=== PATIENT | female | born 1960 | race Caucasian/White ===

== ENCOUNTER → 2019-09-23 08:47 | Outpatient (CLI) | payer BC, SELFPAY ==
[2019-09-23 09:37] LABS: Add Manual Diff / Slide Review NO; Basophils Absolute Auto 100 /uL (0-100); Basophils Percent Auto 2.2 % (0-2); Eosinophils Absolute Auto 100 /uL (0-450); Hematocrit 42.2 % (36-46); Hemoglobin 14.7 g/dL (12.0-16.0); Lymphocytes Absolute Auto 2900 /uL (1100-4500); Lymphocytes Percent Auto 49.7 % (25-40); Mean Corpuscular HGB Conc 34.9 % (30-36); Mean Corpuscular Hemoglobin 30.9 PG (26-34); Mean Corpuscular Volume 88.5 fL (80-100); Monocytes Absolute Auto 500 /uL (0-900); Monocytes Percent Auto 7.8 % (3-14); Neutrophils Absolute Auto 2200 /uL (1500-7000); Neutrophils Percent Auto 38.3 % (50-75); Platelet Count 273 X10^3/uL (150-400); Red Blood Cell Count 4.77 X10^6/uL (4.0-5.2); Red Cell Distribution Width 12.8 % (11.6-14.8); White Blood Cell Count 5.8 X10^3/uL (4.5-11.0)
[2019-09-23 09:47] LABS: Alanine Aminotransferase 39 IU/L (<35); Albumin 4.6 g/dL (3.5-5.0); Albumin Globulin Ratio 1.5 (1.0-2.8); Alkaline Phosphatase 120 U/L (38-126); Aspartate Aminotransferase 30 IU/L (14-36); BUN Creatinine Ratio 24.3 (6-22); Bilirubin Total 0.5 mg/dL (0.2-1.3); Blood Urea Nitrogen 17 mg/dL (7-17); Calcium 9.4 mg/dL (8.4-10.2); Carbon Dioxide 28 mmol/L (22-32); Chloride 103 mmol/L (98-107); Cholesterol 233 mg/dL (140-199); Estimated Glomerular Filt Rate > 60.0 mL/min (>60); Glucose 111 mg/dL (80-110); HDL Cholesterol 38 mg/dL (40-60); HEMOLYSIS < 15 (0-50); LDL Cholesterol Calculated 141 mg/dL (<100); Potassium 4.3 mmol/L (3.4-5.1); Sodium 140 mmol/L (137-145); Total Protein 7.6 g/dL (6.3-8.2); Triglycerides 269 mg/dL (35-150)
[2019-09-23 10:30] LABS: Free T3, Triiodothyronine Free 3.84 pg/mL (2.77-5.27); Free T4, Direct Thyroxine 1.13 ng/dL (0.78-2.19)
[2019-09-23 10:44] LABS: Thyroid Stimulating Hormone 1.69 uIU/mL (0.47-4.68)
[2019-09-23 14:07] LABS: Appearance Urine UA CLEAR; Bilirubin Urine UA NEGATIVE (NEGATIVE); Color Urine UA YELLOW; Glucose Urine UA NEGATIVE (Negative); Ketones Urine UA NEGATIVE (NEGATIVE); Leukocyte Esterase Urine UA 1+ (NEGATIVE); Nitrite Urine UA NEGATIVE (Negative); Occult Blood Urine UA 1+ (Negative); Protein Urine UA NEGATIVE (Negative); Urobilinogen Urine UA 0.2 E.U./dL (0.2)
[2019-09-23 14:16] LABS: Amorphous Sediment Urine 1+; Bacteria Urine Occasional (0-1); Culture Indicated Urine Specimen Cultured; Mucus Urine 1+ (Negative); RBC Urine 0-1/HPF (0-5/HPF); Squamous Epithelial Cell Urine 1-5 /HPF (0-5/HPF); WBC Urine 1-5/HPF (0-5/HPF)
[2019-09-23 14:43] LABS: Creatinine Urine Random 43.9 mg/dL
[2019-09-23 15:14] LABS: Microalbumi Creatinin Ratio Ur 13.6 ug/mg CR (<30); Microalbumin Urine Random < 0.6 mg/dL (0-1.6)
== END ==
PROVIDERS: PCP Nurse Practitioner; Visit Provider Nurse Practitioner
DX: Z00.00 Encounter for general adult medical examination without abnormal findings (principal)
CPT/HCPCS: 36415; 80053; 80061; 81001; 82043; 82570; 84439; 84443; 84481; 85025; 87077; 87086; 87186

== ENCOUNTER → 2019-09-23 12:57 | Outpatient (CLI) | payer BC, SELFPAY ==
--- NOTE | 2019-09-23 13:01 | DI.US.S_ITS ---
PROCEDURE: US PELVIC COMPLETE INDICATIONS: UTERINE MASS TECHNIQUE: Real-time scanning was performed of the pelvic organs, with image documentation. Additional endovaginal scanning was necessary due to incomplete visualization of the adnexal and endometrial structures by transabdominal scanning. COMPARISON: None. FINDINGS: Transabdominal scanning: Limited scanning through the kidneys shows no hydronephrosis. No pathologic free abdominal or pelvic fluid. Endovaginal scanning: Uterus: Uterus is mildly enlarged in size for a postmenopausal patient at 5.5 x 7.5 x 9.7 cm. The endometrium is not be visualized as a normal discrete entity, but rather the area of the endometrial canal is diffusely heterogeneous with no normal endometrial tissue visualized. There is a midline submucosal 4.6 x 4.3 x 4.8 cm vascular mass consistent with fibroid, a left/midline intramural 1.7 x 1.6 x 1.5 cm rounded masslike structure also consistent with fibroid. There is a midline intramural 1.6 x 1.7 x 2.1 cm small rounded mass consistent with fibroid. The cervix appears normal. Ovaries: The right ovary measures 3.3 x 1.6 x 1.9 cm the left ovary could not be visualized. Incidental note is made of a sharply demarcated cysts involving the right liver, near the right kidney and the liver is seen to be hyperechoic consistent with generalized fatty infiltration, IMPRESSION: The patient reports 10 years postmenopausal status, without hormone replacement therapy. Currently the uterus is seen to contain several fibroids, but also the endometrial canal area is diffusely heterogeneous, potentially involved by a mass lesion, and sonographic assessment cannot accurately establish presence or absence of malignancy in this patient. Pelvic MRI with contrast may be warranted for more accurate assessment. Normal appearing right ovary, nonvisualization of the left ovary. Dictated by: Rojas Louis M.D. on 09/23/2019 at 14:18 Approved by: Rojas Louis M.D. on 09/23/2019 at 14:24
== END ==
PROVIDERS: PCP Nurse Practitioner; Visit Provider Nurse Practitioner
DX: N85.8 Other specified noninflammatory disorders of uterus (principal); D25.0 Submucous leiomyoma of uterus; D25.1 Intramural leiomyoma of uterus; K76.89 Other specified diseases of liver
CPT/HCPCS: 76830; 76856

== ENCOUNTER → 2019-10-03 15:35 | Outpatient (CLI) | payer BC, SELFPAY ==
--- NOTE | 2019-10-03 15:36 | DI.MRI.S_ITS ---
PROCEDURE: MR PELVIS WO/W CON INDICATIONS: Uterine mass, abnormal pelvic US TECHNIQUE: Coronal HASTE, sagittal breath-hold T2 FSE; axial T1 FSE with and without fat saturation through the pelvis. Optional long- and short-axis uterine nonbreath-hold T2 FSE through the uterus. Sagittal or axial dynamic VIBE during administration of contrast. Post-contrast axial or coronal VIBE/2-D FLASH with fat saturation from the iliac crests to the symphysis. Optional diffusion weighted imaging and ADC may be performed. COMPARISON: [facility], US, US PELVIC COMPLETE, 09/23/2019, 13:12. FINDINGS: Image quality: Excellent. Uterus: Uterus is moderately enlarged and in size and somewhat lobulated, with multiple uterine fibroids present showing mildly heterogeneous contrast enhancement and generally a size of approximately 2.8 cm. There is, however, the dominant rounded uterine mass that is heterogeneous internally and shows a greater degree of contrast enhancement seen at the mid body cephalad into the uterine fundus. This structure measures up to 5.4 cm AP, 5.4 cm craniocaudad an approximately 5.3 cm in maximal transverse dimension. Endometrium is normal in thickness where well visualized but the endometrial lining is not fully visualized due to distortion by the multiple uterine fibroids. Junctional zone is normal in thickness at 12 mm or less where well seen. Adnexa: Both ovaries are normal in size, without suspicious cystic or solid lesions. Urinary system: Bladder wall is normal in thickness. Distal ureters are non distended. Urethra appears normal in morphology. Nodes and vessels: No pelvic or inguinal adenopathy by size criteria. Iliac vessels are normal in size. Bowel and peritoneum: No pathologic free pelvic fluid. Inferior colon and small bowel loops are normal in caliber. Soft tissues: No inguinal hernias. No findings of pelvic floor incompetence in the absence of provocation. Bones: Marrow demonstrates normal overall signal. IMPRESSION: A large dominant fibroid is the presumed cause for the dominant mass involving the myometrium of the uterus, measuring up to 5.4 x 5.4 x 5.3 cm. This enhances to a somewhat greater degree than additional smaller fibroids scattered within the myometrium, all of which distort the endometrial lining to the degree that it is not fully visualized. No adenopathy or free fluid is seen. Gynecological consultation is recommended given the absence of comparison studies and the dominant nature of the fibroid discussed above. It is very difficult to discriminate between early neoplastic change such as a leiomyosarcoma from a dominant fibroid such is present in this case. If old comparison studies are available for review they should be obtained and an addendum report to this examination could be generated. Dictated by: Rojas Louis M.D. on 10/04/2019 at 9:07 Approved by: Rojas Louis M.D. on 10/04/2019 at 9:26
== END ==
PROVIDERS: PCP Nurse Practitioner; Visit Provider Nurse Practitioner
DX: R93.89 Abnormal findings on diagnostic imaging of other specified body structures (principal); D25.9 Leiomyoma of uterus, unspecified; N94.89 Other specified conditions associated with female genital organs and menstrual cycle
CPT/HCPCS: 72197; A9579

== ENCOUNTER → 2019-10-22 14:27 | Outpatient (CLI) | payer BC, SELFPAY ==
[2019-10-22 15:31] LABS: Amylase 79 U/L (30-110); Lipase 127 U/L (23-300)
== END ==
PROVIDERS: PCP Nurse Practitioner
DX: K85.90 Acute pancreatitis without necrosis or infection, unspecified (principal)
CPT/HCPCS: 36415; 82150; 83690

== ENCOUNTER → 2019-11-11 11:58 | Outpatient (CLI) | payer BC, SELFPAY ==
--- NOTE | 2019-11-11 12:00 | DI.MG.S_ITS ---
BILATERAL DIGITAL SCREENING MAMMOGRAM 3D/2D WITH CAD: 11/11/2019 CLINICAL: Routine screening. Comparison is made to exams dated: 10/26/2010 mammogram, 07/04/2011 mammogram, and 12/19/2011 mammogram - [facility]. The tissue of both breasts is heterogeneously dense. This may lower the sensitivity of mammography. Current study was also evaluated with a Computer Aided Detection (CAD) system. There is an oval equal density mass with a circumscribed margin in the right breast at 3 o'clock posterior depth. No other significant masses, calcifications, or other findings are seen in either breast. IMPRESSION: INCOMPLETE: NEEDS ADDITIONAL IMAGING EVALUATION The oval equal density mass in the right breast is indeterminate. Mediolateral and spot compression views as well as additional views with possible ultrasound are recommended. This exam was interpreted at Station ID: [id number]. NOTE: For mammograms, a report in lay terms will be sent to the patient. Approximately 15% of breast malignancies will not be visualized mammographically. In the management of a palpable breast mass, a negative mammogram must not discourage biopsy of a clinically suspicious lesion. Electronically Signed By: John euceda/chantale:11/12/2019 16:04:38 letter sent: Additional Imaging Needed ACR BI-RADS Category 0: Incomplete 3340F
== END ==
PROVIDERS: PCP Nurse Practitioner; Visit Provider Nurse Practitioner
DX: Z12.31 Encounter for screening mammogram for malignant neoplasm of breast (principal)
CPT/HCPCS: 77063; 77067

== ENCOUNTER → 2019-12-10 09:41 | Outpatient (CLI) | payer BC, SELFPAY ==
--- NOTE | 2019-12-10 09:45 | DI.US.S_ITS ---
ULTRASOUND OF RIGHT BREAST: 12/10/2019 CLINICAL: Abn mammo. Comparison is made to exams dated: 12/10/2019 mammogram, 11/11/2019 mammogram - [facility], 12/19/2011 mammogram, 07/04/2011 mammogram, and 10/26/2010 mammogram - [facility]. Color flow and real-time ultrasound of the right breast were performed on the areas of interest. Manley scale images of the real-time examination were reviewed. There is a 0.9 cm x 0.7 cm x 0.8 cm irregular cyst in the right breast at 3 o'clock middle depth. This irregular cyst is of mixed echogenicity with internal debris layered inferiorly. This correlates with mammography findings. IMPRESSION: PROBABLY BENIGN The 0.9 cm x 0.7 cm x 0.8 cm irregular cyst in the right breast is consistent with a complicated cyst and is probably benign. A follow-up right mammogram and an ultrasound in 6 months is recommended to demonstrate stability. This exam was interpreted at Station ID: [id number]. Electronically Signed By: Federica gonzales/:12/10/2019 10:46:12 letter sent: Followup Recommended Ultrasound BI-RADS: 3 Probably benign
--- NOTE | 2019-12-10 09:45 | DI.MG.S_ITS ---
UNILATERAL RIGHT DIGITAL DIAGNOSTIC MAMMOGRAM 3D/2D WITH ADDITIONAL VIEWS: 12/10/2019 CLINICAL: Additional evaluation requested from prior study. Comparison is made to exams dated: 11/11/2019 mammogram - [facility], 12/19/2011 mammogram, and 07/04/2011 mammogram - [facility]. The tissue of right breast is heterogeneously dense. This may lower the sensitivity of mammography. There is an oval equal density mass with a circumscribed margin in the right breast at 3 o'clock posterior depth. This is seen in additional views. No other significant masses or calcifications are seen in the breast. IMPRESSION: INCOMPLETE: NEEDS ADDITIONAL IMAGING EVALUATION The oval equal density mass in the right breast is indeterminate. A targeted ultrasound of the right breast is recommended and will be performed immediately following this exam. This exam was interpreted at Station ID: [id number]. NOTE: For mammograms, a report in lay terms will be sent to the patient. Approximately 15% of breast malignancies will not be visualized mammographically. In the management of a palpable breast mass, a negative mammogram must not discourage biopsy of a clinically suspicious lesion. Electronically Signed By: Federica Castillo M.D. lk/:12/10/2019 10:11:27 ACR BI-RADS Category 0: Incomplete 3340F
== END ==
PROVIDERS: PCP Nurse Practitioner; Referring Provider Nurse Practitioner; Visit Provider Nurse Practitioner
DX: R92.8 Other abnormal and inconclusive findings on diagnostic imaging of breast (principal); N60.01 Solitary cyst of right breast
CPT/HCPCS: 76642; 77065; G0279

== ENCOUNTER → 2019-12-27 09:55 | Outpatient (CLI) | payer BC, SELFPAY ==
[2019-12-27 10:48] LABS: Cholesterol 265 mg/dL (140-199); HDL Cholesterol 46 mg/dL (40-60); LDL Cholesterol Calculated 167 mg/dL (<100); Triglycerides 261 mg/dL (35-150)
== END ==
PROVIDERS: PCP Nurse Practitioner; Referring Provider Nurse Practitioner; Visit Provider Nurse Practitioner
DX: E78.5 Hyperlipidemia, unspecified (principal); Z79.899 Other long term (current) drug therapy
CPT/HCPCS: 36415; 80061

== ENCOUNTER → 2020-01-21 13:24 | Outpatient (CLI) | payer BC, SELFPAY ==
--- NOTE | 2020-01-21 13:25 | DI.MRI.S_ITS ---
PROCEDURE: MR ABDOMEN WO CON INDICATIONS: Per GI Dr. Cates Recommendations-hx pancreatitis TECHNIQUE: Coronal HASTE through the abdomen, axial 2-D FLASH in- and [id number], and breath-hold T2 FSE with fat saturation through the biliary system and pancreas. Oblique coronal and axial thin-slice HASTE, radial thick-slab HASTE centered on the extrahepatic bile ducts. Intravenous secretin: Not requested. COMPARISON: None. FINDINGS: Image quality: Excellent. Pancreas and biliary system: The gallbladder is surgically absent. The cystic duct remnant appears as expected. The extrahepatic common duct measures up to 9 mm, expected postcholecystectomy. It tapers normally to the ampulla and measures about 7 mm in maximal diameter. The very mild central intrahepatic biliary dilatation, also expected postcholecystectomy. There are no filling defects in the common duct. Pancreas is normal in morphology, without adjacent soft tissue edema. There is an 8mm cyst along the ventral aspect of the distal tail without a definite connection to the pancreatic duct. Pancreatic duct is normal in caliber, without developmental anomalies. Other solid organs: Liver is normal in size. There is significant signal drop on T1 out of phase imaging with relative hyperintensity around the inferior vena cava, and the caudate lobe. There are multiple small simple cysts scattered throughout the liver, the largest in the caudal right lobe segment measures about 2.5 cm. Spleen is normal in size. No adrenal nodules. Both kidneys are normal in size, without hydronephrosis. Nodes and vessels: No retroperitoneal or mesenteric adenopathy by size criteria. Aorta and inferior vena cava are normal in size. Bowel and peritoneum: Unenhanced bowel loops are normal in caliber. No free fluid. Lung bases: No basal pleural effusions. Heart size is normal. Bones and soft tissues: No ventral hernias. Bone marrow is of normal overall signal. IMPRESSION: 1. Post cholecystectomy and expected caliber of the intra-and extrahepatic bile ducts. 2. No evidence of choledocholithiasis. 3. There is an 8mm subcapsular exophytic pancreatic cyst along the distal tail. This is nonspecific and may be a tiny pseudocyst. One year followup is recommended for reassessment. The pancreas has an otherwise normal morphology. 4. Severe hepatic steatosis and scattered simple hepatic cysts. Dictated by: Itzel Ivy M.D. on 01/21/2020 at 16:19 Approved by: Itzel Ivy M.D. on 01/21/2020 at 16:30
== END ==
PROVIDERS: PCP Nurse Practitioner; Referring Provider Nurse Practitioner; Visit Provider Nurse Practitioner
DX: K85.90 Acute pancreatitis without necrosis or infection, unspecified (principal); K86.2 Cyst of pancreas; Z90.49 Acquired absence of other specified parts of digestive tract; K76.0 Fatty (change of) liver, not elsewhere classified; K76.89 Other specified diseases of liver
CPT/HCPCS: 74181

== ENCOUNTER → 2020-03-26 09:14 | Outpatient (CLI) | payer BC, SELFPAY ==
[2020-03-26 11:17] LABS: Cholesterol 217 mg/dL (140-199); HDL Cholesterol 43 mg/dL (40-60); LDL Cholesterol Calculated 122 mg/dL (<100); Triglycerides 259 mg/dL (35-150)
== END ==
PROVIDERS: PCP Nurse Practitioner; Referring Provider Nurse Practitioner; Visit Provider Nurse Practitioner
DX: E78.2 Mixed hyperlipidemia (principal)
CPT/HCPCS: 36415; 80061

== ENCOUNTER → 2020-06-01 11:31 | Outpatient (CLI) | payer BC, SELFPAY ==
[2020-06-02 03:49] LABS: COVID19 Sendout Not Detected (Not Detect)
== END ==
PROVIDERS: PCP Nurse Practitioner; Visit Provider Physician Assistant
DX: Z11.59 Encounter for screening for other viral diseases (principal)
CPT/HCPCS: 87635

== ENCOUNTER 2020-06-04 08:41 | Day surgery (SDC) | payer BC, SELFPAY ==
--- NOTE | 2020-06-04 | PATH_ITS ---
[facility] Accession Number: [id number] . 01 Material submitted: . body - POLYP AT 15CM . 02 Diagnosis: Colon, Polyp at 15 cm, Biopsy: Hyperplastic polyp. MRV 06/09/2020 1323 Local . 02 Electronically signed: . Melania Mendoza MD, Pathologist NPI- [id number] . 01 Gross description: . Received in formalin, labeled with the patient's name, MRN and polyp at 15 cm, are two martinez-white irregular fragments of tissue, each measuring 0.3 cm in greatest dimension. The entire specimen is submitted in cassette A1. (SD/[id number] [id number]) /MRV 06/05/2020 1326 Local . 02 Pathologist provided ICD-10: K63.5 . 02 CPT . 779628 Performed at: 01 [facility] [address] [id number] MD John Guan MD Phone: [phone] Performed at: 02 [facility] [address] [place], [place] [id number] MD Melania Mendoza MD Phone: [phone]
[2020-06-04 09:00] VITALS: BP 137/89; PULSE 82; RESP 17; TEMP 36.4; O2SAT 94; BMI 30.1
[2020-06-04] MEDS: LACTATED RINGERS 1,000 ML 200 ML IV (09:00)
--- NOTE | 2020-06-04 10:34 | PM.HP.1 ---
History of Present Illness History of Present Illness Date Patient Seen: 06/04/20 Time Patient Seen: 10:11 Chief complaint: SDC Narrative: The patient is a woman here for screening colonoscopy. Last exam was 10 or 11 years ago when she was 49. No family history of colon cancer. Patient History Medical History Allergies (Chronic ~1985) Chicken pox (Resolved ~1965) Cystic breast (Acute) Cystic mass of pancreas (Acute) Hepatic cyst (Acute) Hepatic steatosis (Acute) History of Clostridioides difficile colitis (Resolved) History of Helicobacter pylori infection (Resolved) History of pancreatitis (Resolved) Insomnia (Chronic) Mixed hyperlipidemia (Acute) Mumps (Resolved ~1966) Obstructive sleep apnea (Chronic) Pancreatitis (Chronic) Snoring (Chronic) Surgical History Anesthesia (Resolved) History of cholecystectomy (Resolved) History of laparoscopy (Resolved ~1989) Family & Social History Family History Father History of heart disease Brother Hyperlipidemia Hypertension Grandfather Cancer Grandmother No problems noted. Grandfather History of heart disease Grandmother Diabetes mellitus History of heart disease Social History: household members significant other Tobacco & Substance use: Smoking Status Former smoker alcohol intake current Substance Use Type does not use Meds Home Medications and Allergies Home Medications Medication Instructions Recorded Confirmed Type L. acidophilus 5 mg-digestive cap PO 08/23/19 12/31/19 History enzymes combo no.5 250 mg capsule Allergies Allergy/AdvReac Type Severity Reaction Status Date / Time No Known Drug Allergies Allergy Verified 06/04/20 09:00 Review of Systems Review of Systems ROS: Yes All systems reviewed with the patient and are negative except as otherwise documented Exam Vital Signs (past 8 hours): - 06/04/20 09:00 Temperature 97.5 F L Pulse Rate 82 Respiratory Rate 17 Blood Pressure 137/89 Pulse Oximetry 94 Oxygen Delivery Method Room Air Narrative Exam Narrative: Pleasant cooperative patient no apparent distress. Lungs are clear to auscultation. No rales or rhonchi. Heart regular rate and rhythm no murmur gallop. Abdomen is soft nontender without mass. No obvious hernias. Patient is alert and oriented x3. Assessment & Plan Assessment & Plan narrative: The patient for a screening colonoscopy. I have discussed the procedure with them. Risks of bleeding, perforation which would necessitate major operation, failure to find remove all lesions, the potential tattoo were all discussed. All questions were answered. They wished to proceed.
--- NOTE | 2020-06-04 10:36 | PM.PREOP ---
Pre-operative Note COVID-19 COVID-19 status: Negative Result date/Date tested (Pos, Neg/Pending): 06/01/20 Interval Note History & Physical reviewed/Exam performed by Physician: Yes Changes to H&P: No ASA Class (for procedural sedation): II
[2020-06-04] MEDS: MIDAZOLAM 5 MG/5 ML VIAL IV ×3 (10:42→11:02)
[2020-06-04] MEDS: fentaNYL 250 MCG/5 ML INJ IV ×4 (10:42→11:02)
--- NOTE | 2020-06-04 11:18 | PM.OP.ENDO ---
Operative Date/Time/Diagnoses Date of procedure: 06/04/20 Time of procedure: 11:18 Pre-op diagnosis: Screening colonoscopy. Last exam 10 or 11 years ago. Post-op diagnosis: same (Polyp in the rectum at 15 cm) Procedure & Clinicians Study performed: Colonoscopy with hot snare polypectomy Same procedure as scheduled: Yes Indications: Screening Surgeon: Koko Carolina Procedure Notes SCOAP/Timeout: Performed Procedure in detail: The patient was placed in the left lateral decubitus position and underwent IV sedation directed by the surgeon consisting of fentanyl and Versed. Digital exam was unremarkable. The scope was inserted and advanced through the rectum into the sigmoid, descending, transverse, and ascending colon. The patient had to be reposition pressure applied and an stiffener inserted in order to reach the cecum. The cecum was reached identified by the ileocecal valve and the appendiceal opening. The scope was gradually brought out. One Polyp was found at 15 cm from the anal verge. It was snared and the base cauterized.. The scope ultimately was retroflexed in the rectum. The appearance was normal. The scope was removed and the patient tolerated the procedure well. Prep was excellent Scope withdrawal time: 6.5 minute (total 12 minutes ) Sedation minutes: 34 Findings: polyp Specimen(s): other (Polyp) Complications: none Post-procedure Recommendations: Colonscopy in 5 years Follow up: as needed Disposition: PACU
[2020-06-04 11:21] VITALS: BP 125/77; PULSE 85; RESP 16; TEMP 36.7; O2SAT 95
[2020-06-04 11:27] VITALS: BP 134/82; PULSE 87; RESP 16; O2SAT 95
[2020-06-04 11:35] VITALS: BP 132/79; PULSE 84; RESP 16; TEMP 36.7; O2SAT 95
[2020-06-04 11:47] VITALS: BP 129/75; PULSE 79; RESP 16; TEMP 36.7; O2SAT 99
== END 2020-06-04 11:50 | disposition home or self-care (01) ==
PROVIDERS: PCP Nurse Practitioner; Referring Provider Nurse Practitioner; Visit Provider Specialist
PROC: 0DJD8ZZ Inspection of Lower Intestinal Tract, Via Natural or Artificial Opening Endoscopic (ICD-10-PCS; CPT 45378; principal; 2020-06-04 09:45)
DX: Z12.11 Encounter for screening for malignant neoplasm of colon (principal); K63.5 Polyp of colon
CPT/HCPCS: 45385; 99152; 99153; J2250; J3010

== ENCOUNTER → 2020-06-23 09:23 | Outpatient (CLI) | payer BC, SELFPAY ==
--- NOTE | 2020-06-23 09:45 | DI.MG.S_ITS ---
Patient Name: RAPHAEL GARCIA date: 1960 Sex: F Attending Physician: Rex Indications: Date: 06/23/2020 09:38 At the request of: ANA AVERY Procedure: MM diagnostic mammo unilat RT UNILATERAL RIGHT DIGITAL DIAGNOSTIC MAMMOGRAM 3D/2D SHORT-TERM FOLLOWUP: 06/23/2020 CLINICAL: Patient returns for a 6 month follow up of the right breast. Comparison is made to exams dated: 12/10/2019 mammogram, 11/11/2019 mammogram - [facility], and 12/19/2011 mammogram - [facility]. The tissue of right breast is heterogeneously dense. This may lower the sensitivity of mammography. There is a stable oval equal density mass with a circumscribed margin in the right breast at 3 o'clock posterior depth. No other significant masses or calcifications are seen in the breast. IMPRESSION: INCOMPLETE: NEEDS ADDITIONAL IMAGING EVALUATION The stable oval equal density mass in the right breast is indeterminate. A targeted ultrasound of the right breast is recommended and will be performed immediately following this exam. This exam was interpreted at Station ID: [id number]. NOTE: For mammograms, a report in lay terms will be sent to the patient. Approximately 15% of breast malignancies will not be visualized mammographically. In the management of a palpable breast mass, a negative mammogram must not discourage biopsy of a clinically suspicious lesion. Electronically Signed By: Federica Castillo M.D. lk/:06/23/2020 09:52:52 Continued Report - Page 2 of 2 Patient Name: RAHPAEL GARCIA date: 1960 Sex: F Attending Physician: Rex Indications: Date: 06/23/2020 09:38 At the request of: ANA AVERY Procedure: MM diagnostic mammo unilat RT ACR BI-RADS Category 0: Incomplete 3340F
--- NOTE | 2020-06-23 10:34 | DI.US.S_ITS ---
Patient Name: RAPHAEL GARCIA date: 1960 Sex: F Attending Physician: Rex Indications: Date: 06/23/2020 10:35 At the request of: ANA AVERY Procedure: US breast RT limited ULTRASOUND OF RIGHT BREAST: 06/23/2020 CLINICAL: 6 month follow-up of cysts. Comparison is made to exams dated: 06/23/2020 mammogram, 12/10/2019 ultrasound, 12/10/2019 mammogram, 11/11/2019 mammogram - [facility], and 12/19/2011 mammogram - [facility]. Color flow ultrasound of the right breast was performed on the areas of interest. Manley scale images of the real-time examination were reviewed. There is a stable 0.7 cm x 0.7 cm x 0.8 cm irregular cyst in the right breast at 3 o'clock middle depth. This irregular cyst is of mixed echogenicity with internal echoes. This correlates with mammography findings. IMPRESSION: PROBABLY BENIGN The stable 0.9 cm x 0.7 cm x 0.8 cm irregular cyst in the right breast is consistent with a complicated cyst and is probably benign. A follow-up mammogram and an ultrasound in 6 months is recommended to demonstrate stability. This exam was interpreted at Station ID: [id number]. Electronically Signed By: Federica gonzales/:06/23/2020 12:06:53 letter sent: Followup Recommended Ultrasound BI-RADS: 3 Probably benign
== END ==
PROVIDERS: PCP Nurse Practitioner; Referring Provider Nurse Practitioner; Visit Provider Nurse Practitioner
DX: R92.8 Other abnormal and inconclusive findings on diagnostic imaging of breast (principal); N60.01 Solitary cyst of right breast
CPT/HCPCS: 76642; 77065; G0279

== ENCOUNTER → 2020-11-26 07:57 | Outpatient (CLI) | payer BC, SELFPAY ==
--- NOTE | 2020-11-26 07:59 | DI.US.S_ITS ---
LIMITED ULTRASOUND OF RIGHT BREAST AND AXILLA: 11/26/2020 CLINICAL: Patient returns today to evaluate a focal asymmetry in the right breast. Comparison is made to exams dated: 11/26/2020 mammogram, 06/23/2020 ultrasound, 06/23/2020 mammogram, and 12/10/[address] ultrasound - [facility]. Color flow and real-time ultrasound of the right breast 3 o'clock, and axilla regions were performed on the areas of interest. There is a 0.8 cm x 0.7 cm x 0.7 cm oval cyst in the right breast at 3 o'clock middle depth. This oval cyst is hypoechoic with internal dependent echoes suggestive of debris and posterior acoustic enhancement. This abnormality is not significantly changed and correlates with mammography findings. Color flow imaging demonstrates that there is no vascularity present. IMPRESSION: PROBABLY BENIGN The 0.8 cm x 0.7 cm x 0.7 cm oval cyst in the right breast is consistent with a complicated cyst and is probably benign. A follow-up mammogram and an ultrasound in 12 months are recommended to demonstrate 2 year stability. Future imaging is recommended as follows: 12/21/2020 right mammogram and an ultrasound. This exam was interpreted at Station ID: [id number]. Electronically Signed By: John euceda/:11/26/2020 11:27:56 letter sent: Followup Recommended Ultrasound BI-RADS: 3 Probably benign
--- NOTE | 2020-11-26 07:59 | DI.MG.S_ITS ---
BILATERAL DIGITAL DIAGNOSTIC MAMMOGRAM 3D/2D SHORT-TERM FOLLOW-UP: 11/26/2020 CLINICAL: Short term follow up of the right breast, due for bilateral imaging. Comparison is made to exams dated: 06/23/2020 mammogram, 12/10/2019 mammogram, and 11/11/2019 mammogram - [facility]. The tissue of both breasts is heterogeneously dense. This may lower the sensitivity of mammography. There is an oval equal density cyst with a circumscribed margin in the right breast at 3 o'clock posterior depth. This is not significantly changed. No other significant masses, calcifications, or other findings are seen in either breast. IMPRESSION: INCOMPLETE: NEEDS ADDITIONAL IMAGING EVALUATION The oval equal density cyst in the right breast is indeterminate. An ultrasound is recommended. Ultrasound will be performed immediately following the current exam. This exam was interpreted at Station ID: [id number]. NOTE: For mammograms, a report in lay terms will be sent to the patient. Approximately 15% of breast malignancies will not be visualized mammographically. In the management of a palpable breast mass, a negative mammogram must not discourage biopsy of a clinically suspicious lesion. Electronically Signed By: John Douglass M.D. ddp/:11/26/2020 08:54:17 ACR BI-RADS Category 0: Incomplete 3340F
== END ==
PROVIDERS: PCP Nurse Practitioner; Referring Provider Nurse Practitioner; Visit Provider Nurse Practitioner
DX: R92.8 Other abnormal and inconclusive findings on diagnostic imaging of breast (principal); N60.19 Diffuse cystic mastopathy of unspecified breast; N60.01 Solitary cyst of right breast
CPT/HCPCS: 76642; 77066; G0279

== ENCOUNTER 2021-04-30 08:48 | Emergency (ER) | payer BC, SELFPAY ==
[2021-04-30 09:05] VITALS: BP 165/82; PULSE 88; RESP 16; TEMP 36.7; O2SAT 97; BMI 32.9
--- NOTE | 2021-04-30 09:10 | DI.RAD.S_ITS ---
PROCEDURE: XR ANKLE RT MIN 3V INDICATIONS: fall 03/27, ongoing pain TECHNIQUE: 3 views of the ankle were acquired. COMPARISON: None. FINDINGS: Bones: No acute displaced fracture or dislocation. Ankle mortise is normally aligned. No suspicious bony lesions. Small posterior calcaneal enthesophyte. Soft tissues: There is minimal soft tissue edema over the medial malleolus. IMPRESSION: No acute osseous abnormality. If clinical suspicion for an occult fracture or soft tissue injury and/or symptoms persist, additional imaging with advanced imaging (e.g. CT, MRI) may be helpful for further assessment. Dictated by: Esa Quinonez M.D. on 04/30/2021 at 9:38 Approved by: Esa Quinonez M.D. on 04/30/2021 at 9:44
[2021-04-30 09:34] VITALS: PULSE 75; O2SAT 96
--- NOTE | 2021-04-30 09:48 | ED_ITS ---
HPI - Extremity Injury (Lower) General Chief Complaint: Extremity Injury, Lower Stated Complaint: fall on stairs March 27/right leg and ankle injury Time Seen by Provider: 04/30/21 09:35 Source: patient Mode of arrival: Family Vehicle Limitations: no limitations History of Present Illness HPI Narrative: Patient is a 61-year-old female here for evaluation of right ankle discomfort. She states that the symptoms started approximately 1 month ago where she fell down a couple stairs and twisted her right leg and right ankle. She has been ambulatory since then. Has been using an Sohan bandage and a sleeve ankle brace however has continued to have some discomfort in feeling weakness in that right leg. Also has had some swelling. Has not seen her primary doctor for the symptoms. Related Data Home Medications Medication Instructions Recorded Confirmed L. acidophilus 5 mg-digestive cap PO 08/23/19 12/31/19 enzymes combo no.5 250 mg capsule (Probiotic-Digestive Enzymes) Allergies Allergy/AdvReac Type Severity Reaction Status Date / Time No Known Drug Allergies Allergy Verified 04/30/21 09:33 Review of Systems Constitutional Constitutional: Reports system reviewed and no additional complaints, except as documented Musculoskeletal Musculoskeletal: Reports as per HPI and Denies tingling Integumentary/Breasts Comments: Mild bruising around right ankle Neurologic Neurologic: Denies tingling Hematologic/Lymphatic On Anticoagulants: No Patient History Medical History (Updated 04/30/21 @ 10:02 by Wale Campos DO) Allergies (~1985) Chicken pox (~1965) Cystic breast Cystic mass of pancreas Hepatic cyst Hepatic steatosis History of Clostridioides difficile colitis History of Helicobacter pylori infection History of pancreatitis Insomnia Mixed hyperlipidemia Mumps (~1966) Obstructive sleep apnea Pancreatitis Snoring Surgical History Anesthesia History of cholecystectomy History of laparoscopy (~1989) Family History Father History of heart disease Brother Hyperlipidemia Hypertension Grandfather Cancer Grandmother No problems noted. Grandfather History of heart disease Grandmother Diabetes mellitus History of heart disease Social History household members: significant other Smoking Status: Former smoker second hand exposure: Yes alcohol intake: current substance use type: does not use Smoking Status: Former smoker alcohol intake frequency: 0-2 drinks per day Substance Use Type: does not use Exam Initial Vital Signs Initial Vital Signs: Vital Signs Temperature 98.1 F 04/30/21 09:05 Pulse Rate 88 04/30/21 09:05 Respiratory Rate 16 04/30/21 09:05 Blood Pressure 165/82 H 04/30/21 09:05 Pulse Oximetry 97 04/30/21 09:05 Const General: cooperative and comfortable HENMT Head: normal to inspection and normocephalic Resp Effort & Inspection: normal respiratory effort Cardio Pulses: dorsalis pedis present on the right Skin General: no rashes or lesions noted Neuro Sensory Exam: no sensory deficits noted Extrem Other: No proximal fibula tenderness. Does have some tenderness along the Achilles tendon but does field intact. Has tenderness along the lateral malleolus. No medial malleolar tenderness. Course Orders Ordered: ED Orders 04/30/21 09:10 XR ankle RT min 3V Stat Vital Signs Vital signs: Vital Signs - 8 hr 04/30/21 09:05 Temperature 98.1 F Pulse Rate 88 Respiratory Rate 16 Blood Pressure 165/82 H Pulse Oximetry 97 MDM - Extremity Injury (Lower) Imaging Data Extremity x-ray #1: Radiologist's Impression: [address] [id number] ReportSigned Patient: Radames Hinojosa AMR#: [id number]: 9Acct:[id number]/Sex: 61 / FDate of Service: 04/30/21Loc: EDAccession Number: [id number] Procedure: XR ankle RT min 3V Ordering Provider: Wale Campos D.O. PROCEDURE: XR ANKLE RT MIN 3V INDICATIONS: fall 03/27, ongoing pain TECHNIQUE: 3 views of the ankle were acquired. COMPARISON: None. FINDINGS: Bones: No acute displaced fracture or dislocation. Ankle mortise is normally aligned. No suspicious bony lesions. Small posterior calcaneal enthesophyte. Soft tissues: There is minimal soft tissue edema over the medial malleolus. IMPRESSION: No acute osseous abnormality. If clinical suspicion for an occult fracture or soft tissue injury and/or symptoms persist, additional imaging with advanced imaging (e.g. CT, MRI) may be helpful for further assessment. Dictated by: Esa Quinonez M.D. on 04/30/2021 at 9:38 Approved by: Esa Quinonez M.D. on 04/30/2021 at 9:44 [facility] Narrative Medical decision making narrative: Is neurovascularly intact. No fractures noted on the x-rays. Incident occurred 1 month ago. I suspect that she may have injured her Achilles tendon given the symptoms that she describes. No further workup needed in the emergency department. She has an Sohan bandage and an ankle sleeve that she has been using she was encouraged to continue to use this and to contact her primary doctor to discuss potential further workup to include further radiologic studies/physical therapy/orthopedic referral. She expressed understanding and agreement. Discharge Plan Departure Patient Disposition: Home Clinical Impression: Ankle sprain Instructions: DI for Ankle Sprain, How to Apply an Elastic Wrap on Ankle Activity Restrictions/Additional Instructions: You can continue to use the elastic bandage or the ankle brace like you have been doing. Recommend that you contact your primary doctor's you may need further evaluation and to discuss the indications for either an MRI or physical therapy or brand marketing specialist referral. Prescriptions: No Action Probiotic-Digestive Enzymes 5-250 mg capsule PO RF: 0 Referrals: Celeste Goodman ARNP [Primary Care Provider] -
[2021-04-30 10:00] VITALS: BP 144/77; PULSE 72; O2SAT 97
== END 2021-04-30 10:19 | disposition home or self-care (01) ==
PROVIDERS: Emergency Provider Emergency Medicine; PCP Nurse Practitioner
DX: S93.401A Sprain of unspecified ligament of right ankle, initial encounter (principal); W10.9XXA Fall (on) (from) unspecified stairs and steps, initial encounter
CPT/HCPCS: 73610; 99283

== ENCOUNTER → 2021-07-23 08:54 | Outpatient (CLI) | payer BC, SELFPAY ==
[2021-07-23 10:05] LABS: Add Manual Diff / Slide Review NO; Basophils Absolute Auto 100 /uL (0-100); Basophils Percent Auto 2.6 % (0-2); Eosinophils Absolute Auto 100 /uL (0-450); Eosinophils Percent Auto 2.3 % (2-4); Hematocrit 42.1 % (36-46); Lymphocytes Absolute Auto 2500 /uL (1100-4500); Lymphocytes Percent Auto 49.4 % (25-40); Mean Corpuscular HGB Conc 33.2 % (30-36); Mean Corpuscular Hemoglobin 30.7 PG (26-34); Mean Corpuscular Volume 92.5 fL (80-100); Monocytes Absolute Auto 500 /uL (0-900); Monocytes Percent Auto 9.1 % (3-14); Neutrophils Absolute Auto 1800 /uL (1500-7000); Neutrophils Percent Auto 36.6 % (50-75); Platelet Count 262 X10^3/uL (150-400); Red Blood Cell Count 4.55 X10^6/uL (4.0-5.2); Red Cell Distribution Width 12.6 % (11.6-14.8)
[2021-07-23 10:21] LABS: Alanine Aminotransferase 39 IU/L (<35); Albumin 4.5 g/dL (3.5-5.0); Albumin Globulin Ratio 1.5 (1.0-2.8); Alkaline Phosphatase 112 U/L (38-126); Aspartate Aminotransferase 31 IU/L (14-36); Bilirubin Total 0.6 mg/dL (0.2-1.3); Blood Urea Nitrogen 15 mg/dL (7-17); Calcium 9.3 mg/dL (8.4-10.2); Carbon Dioxide 31 mmol/L (22-32); Chloride 102 mmol/L (98-107); Cholesterol 236 mg/dL (140-199); Estimated Glomerular Filt Rate > 60.0 mL/min (>60); Glucose 112 mg/dL (80-110); HDL Cholesterol 49 mg/dL (40-60); HEMOLYSIS < 15 (0-50); LDL Cholesterol Calculated 140 mg/dL (<100); Sodium 141 mmol/L (137-145); Total Protein 7.5 g/dL (6.3-8.2); Triglycerides 236 mg/dL (35-150)
[2021-07-23 10:38] LABS: Free T3, Triiodothyronine Free 4.04 pg/mL (2.77-5.27); Free T4, Direct Thyroxine 1.04 ng/dL (0.78-2.19)
[2021-07-23 10:51] LABS: Thyroid Stimulating Hormone 1.58 uIU/mL (0.47-4.68)
== END ==
PROVIDERS: PCP Nurse Practitioner; Referring Provider Nurse Practitioner; Visit Provider Nurse Practitioner
DX: Z00.00 Encounter for general adult medical examination without abnormal findings (principal); E78.2 Mixed hyperlipidemia; I10 Essential (primary) hypertension; K76.0 Fatty (change of) liver, not elsewhere classified
CPT/HCPCS: 36415; 80053; 80061; 84439; 84443; 84481; 85025

== ENCOUNTER → 2021-10-20 11:58 | Outpatient (CLI) | payer BC, SELFPAY ==
[2021-10-20 14:13] LABS: COVID19 -Nasal RAPID Negative (Negative)
== END ==
PROVIDERS: PCP Nurse Practitioner; Referring Provider Nurse Practitioner Family; Visit Provider Nurse Practitioner Family
DX: Z01.812 Encounter for preprocedural laboratory examination (principal); Z20.822 Contact with and (suspected) exposure to COVID-19
CPT/HCPCS: 87635

== ENCOUNTER → 2021-10-22 13:05 | Outpatient (CLI) | payer BC, SELFPAY ==
--- NOTE | 2021-10-22 14:24 | P.PCN_ITS ---
Cardiac Stress Test Report Referral & Results Date Patient Seen: 10/22/21 Requesting provider: Celeste Goodman Indication: Dyspnea with exertion Rest ECG: Unremarkable Procedure Note: Today following both written and verbal informed consent, the patient was exercised according to a standard Feliz protocol. The patient exercised for a total of 6 minutes 19 seconds achieving a maximum heart rate of 149. Patient's maximum systolic blood pressure was 160. This was an estimated 7.0 MET's. Patient became quite dyspneic with activity despite the fact her oxygen satur ation was 93% and never wavered There are no ST-T segment changes identified Normal heart rate blood pressure response to exercise Function aerobic impairment rated-20% on the sedentary scale Impression: No evidence of ischemia with better than average exercise capacity Patient did have significant shortness of breath both objectively and subjectively however she was still able to speak in near complete sentences even at maximum. I did suggest to the patient that perhaps performing PFTs and or echocardiography might provide additional information and at a minimum rule out other significant cardiac or pulmonary disease Clinical correlation suggested Please note: Actual ECG tracings can be found in the PACS system.
== END ==
PROVIDERS: PCP Nurse Practitioner; Referring Provider Nurse Practitioner; Visit Provider Nurse Practitioner
DX: R06.02 Shortness of breath (principal); R06.00 Dyspnea, unspecified
CPT/HCPCS: 93016; 93017; 93018

== ENCOUNTER → 2021-10-28 12:41 | Outpatient (CLI) | payer BC, SELFPAY ==
--- NOTE | 2021-10-28 12:43 | DI.MRI.S_ITS ---
PROCEDURE: MR ABDOMEN WO/W CON INDICATIONS: f/up pancreatic cyst, family hx of pancreatic cancer TECHNIQUE: Coronal HASTE, axial 2D FLASH in- and [id number]; axial breath-hold T2 FSE with fat saturation from the hepatic dome to the iliac crests. Oblique coronal thin-slice and radial thick slab HASTE through the biliary system. Dynamic axial VIBE during administration of contrast. Post-contrast coronal VIBE or 2D FLASH with fat saturation from the hepatic dome to the iliac crests. Optional diffusion weighted imaging and ADC may be performed. COMPARISON: [facility], MR, MR ABDOMEN WO CON, 01/21/2020, 13:38. FINDINGS: Image quality: There is mild motion artifact. Pancreas and biliary system: The main pancreatic duct is nondistended. Within the pancreatic tail, there is a small thin-walled cyst anteriorly measuring up to 0.8 x 0.7 x 0.7 cm, stable in size compared to the prior study. A discrete communication with the main pancreatic duct is not visualized but is not excluded. Following contrast administration, there is no definite evidence of solid internal enhancement within the cyst. The gallbladder is surgically absent. There is mild prominence of the biliary ducts, with the common bile duct measuring up to 0.8 cm likely representing sequelae of prior cholecystectomy. No discrete filling defects identified to suggest choledocholithiasis. Solid organs: The liver demonstrates no discrete mass. Multiple thin walled nonenhancing cysts are redemonstrated within the liver. Spleen is normal in size and enhancement. No adrenal nodules. Kidneys are normal in size and enhancement, without hydronephrosis. Nodes and vessels: No retroperitoneal or mesenteric adenopathy by size criteria. Aorta and inferior vena cava are normal in size. Bowel and peritoneum: Visualized bowel loops are normal in caliber. No free fluid. Lung bases: No basal pleural effusions. Heart size is normal. Bones and soft tissues: No ventral hernias. Bone marrow is normal in overall signal. IMPRESSION: 1. Stable small thin-walled cyst within the pancreatic tail. No discrete solid enhancing component identified. The differential includes a small side branch IPMN, although no discrete communication is visualized with the main pancreatic duct, versus a small mucinous cystic neoplasm. Recommend continued follow-up in 12 months to demonstrate stability. 2. Mild biliary ductal dilatation redemonstrated without evidence of choledocholithiasis. Findings likely reflect sequelae of prior cholecystectomy. Dictated by: John Douglass M.D. on 10/28/2021 at 17:15 Approved by: John Douglass M.D. on 10/28/2021 at 17:31
== END ==
PROVIDERS: PCP Nurse Practitioner; Referring Provider Nurse Practitioner; Visit Provider Nurse Practitioner
DX: K86.2 Cyst of pancreas (principal); K76.89 Other specified diseases of liver; K76.0 Fatty (change of) liver, not elsewhere classified
CPT/HCPCS: 74183; A9579

== ENCOUNTER → 2021-11-10 17:01 | Outpatient (ROUT) | payer BC, SELFPAY ==
[2021-11-10 17:27] LABS: COVID19 -Nasal RAPID Negative (Negative)
== END ==
PROVIDERS: PCP Nurse Practitioner; Visit Provider Family Medicine Sleep Medicine
DX: Z20.822 Contact with and (suspected) exposure to COVID-19 (principal)
CPT/HCPCS: 87635; C9803

== ENCOUNTER → 2021-11-11 12:56 | Outpatient (CLI) | payer BC, SELFPAY ==
--- NOTE | 2021-11-17 09:41 | PM.PFT.1 ---
Pulmonary Function Test Referral & Results Date Patient Seen: 11/11/21 Requesting provider: Celeste Goodman Results: The spirometry demonstrates an FVC of 2.6 year L which is 69% of predicted. The FEV1 was measured at 2.02 L which is 72% of predicted. The FEV1/FVC ratio was 77 which is 103% of predicted. Following the administration of bronchodilator there was a 70% improvement in FEF 25-75% Lung volumes show an SVC of 2.97 L which is 77% of predicted. The diffusing capacity was measured at 22.52 which is 92% of predicted. The maximum voluntary ventilation was reduced Interpretation: This study demonstrates possible mild obstructive lung disease based on reduction FEV1 although FEV1/FVC ratio is preserved. There is evidence of benefit in small airway flow after bronchodilator based on improvement in FEF 25-75% as above There is also mild reduction in lung volumes suggesting mild restrictive lung disease which may actually explain the reduction in FEV1 Diffusing capacity is normal
== END ==
PROVIDERS: PCP Nurse Practitioner; Referring Provider Nurse Practitioner; Visit Provider Nurse Practitioner
DX: R06.00 Dyspnea, unspecified (principal); Z87.891 Personal history of nicotine dependence; J98.8 Other specified respiratory disorders
CPT/HCPCS: 94060; 94726; 94729

== ENCOUNTER → 2021-12-07 12:44 | Outpatient (CLI) | payer BC, SELFPAY ==
--- NOTE | 2021-12-07 12:45 | DI.ECHO.S_ITS ---
[facility]---------+ [facility] +---------+ : : [address] [place] : : : : [id number] : : : : Phone: [phone]---------+ Echocardiogram Report + + :Name: RAPHAEL GARCIA Study Date: 12/07/2021 Height: 64 in : [facility] ReadingLocation: Weight: 170 lb : : Gender: Female BSA: 1.8 m2 : :: 1960 Age: 61 yrs BP: 155/92 mmHg: :Reason For Study: SOB WITH EXERTION : :Ordering Physician: BENNIE, : :ANA Performed By: Juliana Garcia : :Referring: ANA AVERY : + + Interpretation Summary 1) Normal left ventricular thickness, size, wall motion, and systolic function (EF 55-60%). 2) Normal right ventricular size and function. 3) There is mild aortic regurgitation. 4) Pulmonary artery pressures cannot be estimated because of the lack of a measurable TR jet velocity but the IVC suggests a CVP of around 3 mmHg. 5) Hypertension present during the study (BP 155/92mm Hg). 6) No prior Echo available for comparison. Procedure: A two-dimensional transthoracic echocardiogram with color flow and Doppler was performed. The study quality was technically adequate. There is no prior echocardiogram noted for this patient. The patient was in sinus rhythm with heart rates between 60-74 bpm during the exam. Left Ventricle: The left ventricle is normal in size and wall thickness. The ejection fraction is estimated to be 55-60%. Left ventricular systolic function appears normal without focal wall motion abnormalities. Diastolic parameters suggest a relaxation abnormality of the left ventricle, consistent with probable normal filling pressures. Right Ventricle: The right ventricle is normal in size and function. Atria: The left atrial size is normal. Right atrial size is normal. There is no Doppler evidence for an interatrial shunt. Mitral Valve: The mitral valve is normal in structure and function. There is mild mitral regurgitation. Aortic Valve: The aortic valve is trileaflet. The aortic valve opens well. There is no aortic valve stenosis. There is mild aortic regurgitation. Tricuspid Valve: The tricuspid valve is normal in structure and function. There is a trace or physiologic amount of tricuspid regurgitation. Pulmonary artery pressures cannot be estimated because of the lack of a measurable TR jet velocity but the IVC suggests a CVP of around 3 mmHg. Pulmonic Valve: The pulmonic valve leaflets are thin and pliable; valve motion is normal. There is no pulmonic valvular regurgitation. Great Vessels: The aortic root is normal size. The dimensions of the ascending aorta are normal. The IVC is of normal diameter and collapses greater than 50% with a sniff. This suggests a low right atrial pressure of 3 mm Hg. Pericardium/ Pleura There is no pericardial effusion. There is no pleural effusion. MMode/2D Measurements & Calculations LVIDd: 4.7 cm LVOT diam: 2.0 cm LVIDs: 3.1 cm Ao root diam: 3.0 cm FS: 34.8 % asc Aorta Diam: 3.2 cm IVSd: 0.72 cm Ao Arch Diam (Prox Trans): 2.7 cm LVPWd: 0.91 cm LV last. diameter/BSA (cm/m^2): 2.6 LV sys. diameter/BSA (cm/m^2): 1.7 LA A2 area: 19.1 cm2 RA long axis: 4.6 cm LA A4 area: 18.0 cm2 RA area: 14.6 cm2 LA length (vol): 5.2 cm RA vol: 39.2 ml LA vol: 56.9 ml RA : 21.5 ml/m2 LA vol index: 31.2 ml/m2 IVC diam: 1.6 cm RVD1 (basal): 2.9 cm TAPSE: 1.9 cm Doppler Measurements & Calculations Ao V2 max: 168.3 cm/sec LVOT Max Ariel: 125.4 cm/sec Ao V2 mean: 116.2 cm/sec LV V1 max P.3 mmHg Ao max P.3 mmHg LV V1 VTI: 29.1 cm Ao mean P.0 mmHg RUBA(I,D): 2.4 cm2 Ao V2 VTI: 36.7 cm RUBA(V,D): 2.2 cm2 sev ratio: 0.79 RUBA indexed to BSA (cm^2/m^2): 1.3 AI P1/2t: 593.8 msec AI dec slope: 209.3 cm/sec2 MV E max ariel: 91.8 cm/sec PA V2 max: 120.4 cm/sec MV A max ariel: 85.9 cm/sec PA V2 mean: 79.4 cm/sec MV E/A: 1.1 PA mean P.9 mmHg Med Peak E' Ariel: 6.5 cm/sec PA pr(Accel): 46.5 mmHg E/E' med: 14.2 Lat Peak E' Ariel: 12.4 cm/sec E/E' lat: 7.4 E/e' average: 10.8 MV dec time: 0.22 sec SV(OT): 87.3 ml Reading Physician:02:50 PM
== END ==
PROVIDERS: PCP Nurse Practitioner; Referring Provider Nurse Practitioner; Visit Provider Nurse Practitioner
DX: I08.0 Rheumatic disorders of both mitral and aortic valves (principal); R06.02 Shortness of breath
CPT/HCPCS: 93306

== ENCOUNTER → 2021-12-14 07:41 | Outpatient (CLI) | payer BC, SELFPAY ==
[2021-12-14 09:45] LABS: Hemoglobin 13.9 g/dL (12.0-16.0)
[2021-12-14 10:44] LABS: Alanine Aminotransferase 32 IU/L (<35); Albumin 4.4 g/dL (3.5-5.0); Albumin Globulin Ratio 1.5 (1.0-2.8); Alkaline Phosphatase 98 U/L (38-126); Aspartate Aminotransferase 28 IU/L (14-36); BUN Creatinine Ratio 18.2 (6-22); Bilirubin Total 0.6 mg/dL (0.2-1.3); Blood Urea Nitrogen 12 mg/dL (7-17); Calcium 9.6 mg/dL (8.4-10.2); Carbon Dioxide 30 mmol/L (22-32); Chloride 106 mmol/L (98-107); Cholesterol 143 mg/dL (140-199); Estimated Glomerular Filt Rate > 60.0 mL/min (>60); Glucose 106 mg/dL (80-110); HDL Cholesterol 46 mg/dL (40-60); HEMOLYSIS < 15 (0-50); LDL Cholesterol Calculated 61 mg/dL (<100); Potassium 4.5 mmol/L (3.4-5.1); Sodium 140 mmol/L (137-145); Total Protein 7.4 g/dL (6.3-8.2); Triglycerides 180 mg/dL (35-150)
[2021-12-14 10:49] LABS: Hemoglobin A1C% w Est Avg Glu 5.9 % (4.0-6.0)
== END ==
PROVIDERS: PCP Nurse Practitioner; Referring Provider Nurse Practitioner; Visit Provider Nurse Practitioner
DX: E78.2 Mixed hyperlipidemia (principal); R73.01 Impaired fasting glucose; Z79.899 Other long term (current) drug therapy; R06.00 Dyspnea, unspecified; Z01.812 Encounter for preprocedural laboratory examination
CPT/HCPCS: 36415; 80053; 80061; 83036; 85018

== ENCOUNTER → 2022-01-13 11:48 | Outpatient (CLI) | payer BC, SELFPAY ==
--- NOTE | 2022-01-13 11:48 | DI.MG.S_ITS ---
BILATERAL DIGITAL DIAGNOSTIC MAMMOGRAM 3D/2D SHORT-TERM FOLLOW-UP: 01/13/2022 CLINICAL: Short term follow up of the right breast, due for bilateral imaging. Comparison is made to exams dated: 11/26/2020 mammogram, 06/23/2020 mammogram, 12/10/2019 ultrasound, 11/26/2020 ultrasound, 12/10/2019 mammogram, and 11/11/2019 mammogram - [facility]. The tissue of both breasts is heterogeneously dense. This may lower the sensitivity of mammography. There is a biopsy clip in the right breast. There is a stable oval equal density cyst with a circumscribed margin in the right breast at 3 o'clock posterior depth. No other significant masses, calcifications, or other findings are seen in either breast. IMPRESSION: INCOMPLETE: NEEDS ADDITIONAL IMAGING EVALUATION The stable oval equal density cyst in the right breast is indeterminate. A right breast ultrasound is recommended to demonstrate 2 year stability sonographically. Ultrasound could not be completed on the same day as the diagnostic mammogram. This exam was interpreted at Station ID: [id number]. NOTE: For mammograms, a report in lay terms will be sent to the patient. Approximately 15% of breast malignancies will not be visualized mammographically. In the management of a palpable breast mass, a negative mammogram must not discourage biopsy of a clinically suspicious lesion. Electronically Signed By: Esa Quinonez M.D. ar/:01/13/2022 14:19:19 letter sent: Additional Imaging Needed ACR BI-RADS Category 0: Incomplete 3340F
== END ==
PROVIDERS: PCP Nurse Practitioner; Referring Provider Nurse Practitioner; Visit Provider Nurse Practitioner
DX: N60.01 Solitary cyst of right breast (principal); R92.8 Other abnormal and inconclusive findings on diagnostic imaging of breast
CPT/HCPCS: 77066; G0279

== ENCOUNTER → 2022-01-17 09:43 | Outpatient (CLI) | payer BC, SELFPAY ==
[2022-01-17 11:07] LABS: Amylase 66 U/L (30-110); Lipase 129 U/L (23-300)
[2022-01-18 15:45] LABS: Fats, Neutral Increased (.); Fats, Total Increased (.)
[2022-01-21 23:05] LABS: Pancreatic Elastase, Fecal 375 (>200)
== END ==
PROVIDERS: PCP Nurse Practitioner; Referring Provider Nurse Practitioner; Visit Provider Nurse Practitioner
DX: K86.1 Other chronic pancreatitis (principal)
CPT/HCPCS: 36415; 82150; 82656; 82705; 83690

== ENCOUNTER → 2022-03-02 10:07 | Outpatient (CLI) | payer BC, SELFPAY | PROVIDERS: PCP Nurse Practitioner; Referring Provider Internal Medicine Gastroenterology; Visit Provider Internal Medicine Gastroenterology | DX: K90.9 Intestinal malabsorption, unspecified (principal) | CPT/HCPCS: 86231; 86364; 82784 ==

== ENCOUNTER → 2022-03-07 12:17 | Outpatient (CLI) | payer BC, SELFPAY ==
--- NOTE | 2022-03-07 | DI.US.S_ITS ---
LIMITED ULTRASOUND OF RIGHT BREAST: 03/07/2022 CLINICAL: 6 month follow-up of cysts. Comparison is made to exams dated: 01/13/2022 mammogram, 11/26/2020 ultrasound, 11/26/2020 mammogram, 06/23/2020 ultrasound, 06/23/2020 mammogram, and 12/10/2019 ultrasound - [facility]. Color flow ultrasound of the right breast 3 o'clock region was performed. Manley scale images of the real-time examination were reviewed. There is a stable benign 0.7 cm x 0.8 cm x 0.8 cm round cyst with a thickened deep wall, and septated superficial wall in the right breast at 3 o'clock middle depth 4 cm from the nipple. This round cyst is anechoic and hypoechoic. This correlates with mammography findings. Color flow imaging demonstrates that there is no vascularity present. IMPRESSION: BENIGN There is no sonographic evidence of malignancy. The 0.8 cm round cyst in the right breast has been stable for over two years, consistent with a complicated cyst and is benign. Return to annual mammogram screening schedule is recommended. Findings and recommendations were conveyed to the patient at time of exam. This exam was interpreted at Station ID: [id number]. Electronically Signed By: Itzel tyson/:03/07/2022 12:57:06 letter sent: Normal Exam Ultrasound BI-RADS: 2 Benign
== END ==
PROVIDERS: PCP Nurse Practitioner; Referring Provider Nurse Practitioner; Visit Provider Nurse Practitioner
DX: R92.8 Other abnormal and inconclusive findings on diagnostic imaging of breast (principal); N60.01 Solitary cyst of right breast
CPT/HCPCS: 76642

== ENCOUNTER → 2022-07-19 08:34 | Outpatient (CLI) | payer BC, SELFPAY ==
[2022-07-19 10:28] LABS: Alanine Aminotransferase 34 IU/L (<35); Albumin 4.2 g/dL (3.5-5.0); Albumin Globulin Ratio 1.4 (1.0-2.8); Alkaline Phosphatase 109 U/L (38-126); Aspartate Aminotransferase 24 IU/L (14-36); BUN Creatinine Ratio 19.4 (6-22); Bilirubin Total 0.5 mg/dL (0.2-1.3); Blood Urea Nitrogen 13 mg/dL (7-17); Calcium 9.1 mg/dL (8.4-10.2); Carbon Dioxide 25 mmol/L (22-32); Chloride 106 mmol/L (98-107); Cholesterol 174 mg/dL (140-199); Estimated Glomerular Filt Rate > 60 mL/min (>60); Globulin 3.1 g/dL (1.7-4.1); Glucose 109 mg/dL (80-110); HDL Cholesterol 44 mg/dL (40-60); HEMOLYSIS < 15 (0-50); LDL Cholesterol Calculated 85 mg/dL (<100); Potassium 4.8 mmol/L (3.4-5.1); Sodium 142 mmol/L (137-145); Total Protein 7.3 g/dL (6.3-8.2); Triglycerides 225 mg/dL (35-150)
[2022-07-19 10:32] LABS: Free T3, Triiodothyronine Free 4.53 pg/mL (2.77-5.27); Free T4, Direct Thyroxine 1.03 ng/dL (0.78-2.19)
[2022-07-19 10:46] LABS: Thyroid Stimulating Hormone 2.48 uIU/mL (0.47-4.68)
[2022-07-19 11:13] LABS: Hep C Virus Ab w/Reflex Quant NEGATIVE s/c (NEGATIVE)
== END ==
PROVIDERS: PCP Nurse Practitioner; Referring Provider Nurse Practitioner; Visit Provider Nurse Practitioner
DX: E78.2 Mixed hyperlipidemia (principal); R73.01 Impaired fasting glucose; Z79.899 Other long term (current) drug therapy; Z11.59 Encounter for screening for other viral diseases
CPT/HCPCS: 36415; 80053; 80061; 84439; 84443; 84481; 86803

== ENCOUNTER → 2023-01-17 07:40 | Outpatient (CLI) | payer BC, SELFPAY ==
--- NOTE | 2023-01-17 | DI.MG.S_ITS ---
BILATERAL DIGITAL SCREENING MAMMOGRAM 3D/2D WITH CAD: 01/17/2023 CLINICAL: Routine screening. Comparison is made to exams dated: 01/13/2022 mammogram, 11/26/2020 mammogram, 06/23/2020 mammogram, and 12/10/2019 mammogram - [facility]. Both breasts are heterogeneously dense, which may obscure small masses (category c / 51-75% glandular tissue). Current study was also evaluated with a Computer Aided Detection (CAD) system. There is a biopsy clip in the right breast. No significant masses, calcifications, or other findings are seen in either breast. There has been no significant interval change. IMPRESSION: NEGATIVE There is no mammographic evidence of malignancy. A 1 year screening mammogram is recommended. Based on the Tyrer Cuzick model (a risk assessment model) the patient's lifetime risk is 10.7% and her 10 year risk is 4.8%. According to the ACR, ACS, and NCCN guidelines, an annual breast MRI exam along with mammogram is recommended if the patient's lifetime risk is 20% or greater. This exam was interpreted at Station ID: [id number]. NOTE: For mammograms, a report in lay terms will be sent to the patient. Approximately 15% of breast malignancies will not be visualized mammographically. In the management of a palpable breast mass, a negative mammogram must not discourage biopsy of a clinically suspicious lesion. Electronically Signed By: Federica gonzales/chantale:01/17/2023 08:40:30 letter sent: Normal Exam ACR BI-RADS Category 1: Negative [id number]
== END ==
PROVIDERS: PCP Nurse Practitioner; Referring Provider Nurse Practitioner; Visit Provider Nurse Practitioner
DX: Z12.31 Encounter for screening mammogram for malignant neoplasm of breast (principal)
CPT/HCPCS: 77063; 77067

== ENCOUNTER → 2023-05-23 12:49 | Outpatient (CLI) | payer BC, OTHER, SELFPAY ==
--- NOTE | 2023-05-23 12:51 | DI.US.S_ITS ---
PROCEDURE: US THYROID INDICATIONS: ENLARGED THYROID TECHNIQUE: Real-time scanning was performed of the thyroid gland, with image documentation. COMPARISON: None. FINDINGS: Right: Thyroid lobe measures 4.3 x 1.6 x 1.5 cm, and is homogeneous in echotexture. Left: Thyroid lobe measures 4.6 x 2.4 x 2.4 cm, and is heterogeneous in echotexture. Isthmus: 4.2 mm thick. Nodule number: 1 Location: Upper pole left thyroid lobe Size: 1.5 x 1.9 x 1.2 cm Composition: Predominantly solid Echogenicity: Isoechoic Shape: Wider than tall Margins: Smooth Echogenic foci: None Total points: 3 ACR TI-RADS category: Mildly suspicious. Nodule number: 2 Location: Mid pole left thyroid lobe Size: 2.3 x 1.9 x 2.5 cm Composition: Solid Echogenicity: Isoechoic Shape: Wider than tall Margins: Smooth Echogenic foci: None Total points: 3 ACR TI-RADS category: Mildly suspicious Nodule number: 3 Location: Mid pole left thyroid lobe Size: 0.9 x 0.7 x 0.9 cm Composition: Solid Echogenicity: Isoechoic Shape: Wider than tall Margins: Smooth Echogenic foci: None Total points: 3 ACR TI-RADS category: Mildly suspicious IMPRESSION: 1. Mildly suspicious left thyroid nodule with heterogeneous left thyroid parenchymal echotexture as described above. Ultrasound follow-up is recommended. ACR TI-RADS definitions and recommendations: TI-RADS 1 (benign): 0 points. FNA not needed. TI-RADS 2 (not suspicious): 2 points. FNA not needed. TI-RADS 3 (mildly suspicious): 3 points. * FNA if 2.5 cm or larger, follow up if 1.5 cm or larger (at 1, 3, and 5 years). TI-RADS 4 (moderately suspicious): 4-6 points. * FNA if 1.5 cm or larger, follow up if 1 cm or larger (at 1, 2, 3, and 5 years). TI-RADS 5 (highly suspicious): 7 points or more. * FNA if 1 cm or larger, follow up if 0.5 cm or larger (every year for 5 years). Dictated by: Charlie Choudhury M.D. on 05/23/2023 at 15:05 Approved by: Charlie Choudhury M.D. on 05/23/2023 at 15:07
== END ==
PROVIDERS: PCP Nurse Practitioner; Referring Provider Otolaryngology; Visit Provider Otolaryngology
DX: E04.2 Nontoxic multinodular goiter (principal)
CPT/HCPCS: 76536

== ENCOUNTER → 2023-08-22 09:14 | Outpatient (CLI) | payer BC, OTHER, SELFPAY ==
[2023-08-22 11:10] LABS: Hemoglobin A1C% w Est Avg Glu 5.9 % (4.0-6.0)
[2023-08-22 11:15] LABS: Alanine Aminotransferase 48 IU/L (<35); Albumin 4.2 g/dL (3.5-5.0); Albumin Globulin Ratio 1.3 (1.0-2.8); Alkaline Phosphatase 92 U/L (38-126); Aspartate Aminotransferase 36 IU/L (14-36); BUN Creatinine Ratio 20.3 (6-22); Bilirubin Total 0.5 mg/dL (0.2-1.3); Blood Urea Nitrogen 12 mg/dL (7-17); Calcium 9.6 mg/dL (8.4-10.2); Carbon Dioxide 25 mmol/L (22-32); Chloride 105 mmol/L (98-107); Cholesterol 159 mg/dL (140-199); Estimated Glomerular Filt Rate > 60 mL/min (>60); Globulin 3.2 g/dL (1.7-4.1); Glucose 103 mg/dL (80-110); HDL Cholesterol 47 mg/dL (40-60); HEMOLYSIS 18 (0-50); LDL Cholesterol Calculated 65 mg/dL (<100); Potassium 4.5 mmol/L (3.4-5.1); Sodium 140 mmol/L (137-145); Total Protein 7.4 g/dL (6.3-8.2); Triglycerides 237 mg/dL (35-150)
[2023-08-22 11:23] LABS: Free T3, Triiodothyronine Free 4.21 pg/mL (2.77-5.27); Free T4, Direct Thyroxine 1.09 ng/dL (0.78-2.19)
[2023-08-22 11:36] LABS: Thyroid Stimulating Hormone 1.14 uIU/mL (0.47-4.68)
[2023-08-23 07:18] LABS: Thyroid Peroxidase Antibodies <9 IU/mL (0-34)
== END ==
PROVIDERS: PCP Nurse Practitioner; Referring Provider Nurse Practitioner; Visit Provider Nurse Practitioner
DX: K76.0 Fatty (change of) liver, not elsewhere classified (principal); R73.01 Impaired fasting glucose; E78.2 Mixed hyperlipidemia; R73.03 Prediabetes
CPT/HCPCS: 36415; 80053; 80061; 83036; 84439; 84443; 84481; 86376

== ENCOUNTER → 2024-02-13 12:40 | Outpatient (CLI) | payer BC, OTHER, SELFPAY ==
--- NOTE | 2024-02-13 12:43 | DI.MG.S_ITS ---
BILATERAL DIGITAL SCREENING MAMMOGRAM 3D/2D WITH CAD: 02/13/2024 CLINICAL: Routine screening. Comparison is made to exams dated: 01/17/2023 mammogram, 01/13/2022 mammogram, and 11/26/2020 mammogram - [facility]. Both breasts are heterogeneously dense, which may obscure small masses (category c / 51-75% glandular tissue). Current study was also evaluated with a Computer Aided Detection (CAD) system. There is a biopsy clip in both breasts. No significant masses, calcifications, or other findings are seen in either breast. There has been no significant interval change. IMPRESSION: NEGATIVE There is no mammographic evidence of malignancy. A 1 year screening mammogram is recommended. Based on the Tyrer Cuzick model (a risk assessment model) the patient's lifetime risk is 10.3% and her 10 year risk is 4.8%. According to the ACR, ACS, and NCCN guidelines, an annual breast MRI exam along with mammogram is recommended if the patient's lifetime risk is 20% or greater. This exam was interpreted at Station ID: [id number]. NOTE: For mammograms, a report in lay terms will be sent to the patient. Approximately 15% of breast malignancies will not be visualized mammographically. In the management of a palpable breast mass, a negative mammogram must not discourage biopsy of a clinically suspicious lesion. Electronically Signed By: Esa han/chantale:02/13/2024 13:55:13 letter sent: Normal Exam ACR BI-RADS Category 1: Negative [id number]
== END ==
PROVIDERS: PCP Nurse Practitioner; Referring Provider Nurse Practitioner; Visit Provider Nurse Practitioner
DX: Z12.31 Encounter for screening mammogram for malignant neoplasm of breast (principal); R92.333 Mammographic heterogeneous density, bilateral breasts
CPT/HCPCS: 77063; 77067

== ENCOUNTER → 2024-03-12 09:39 | Outpatient (CLI) | payer MEDICARE, OTHER, SELFPAY ==
[2024-03-12 11:28] LABS: Hemoglobin A1C% w Est Avg Glu 5.6 % (4.0-6.0)
[2024-03-12 11:44] LABS: Alanine Aminotransferase 39 IU/L (<35); Albumin 4.8 g/dL (3.5-5.0); Albumin Globulin Ratio 1.6 (1.0-2.8); Alkaline Phosphatase 110 U/L (38-126); Aspartate Aminotransferase 33 IU/L (14-36); BUN Creatinine Ratio 20.6 (6-22); Bilirubin Total 0.8 mg/dL (0.2-1.3); Blood Urea Nitrogen 14 mg/dL (7-17); Calcium 9.3 mg/dL (8.4-10.2); Carbon Dioxide 30 mmol/L (22-32); Chloride 106 mmol/L (98-107); Cholesterol 181 mg/dL (140-199); Estimated Glomerular Filt Rate > 60 mL/min (>60); Glucose 114 mg/dL (80-110); HDL Cholesterol 54 mg/dL (40-60); HEMOLYSIS < 15 (0-50); LDL Cholesterol Calculated 69 mg/dL (<100); Potassium 4.1 mmol/L (3.4-5.1); Sodium 142 mmol/L (137-145); Total Protein 7.8 g/dL (6.3-8.2); Triglycerides 291 mg/dL (35-150)
[2024-03-12 12:00] LABS: Free T3, Triiodothyronine Free 3.37 pg/mL (2.77-5.27); Free T4, Direct Thyroxine 0.92 ng/dL (0.78-2.19)
[2024-03-12 12:14] LABS: Thyroid Stimulating Hormone 1.85 uIU/mL (0.47-4.68)
[2024-03-12 17:43] LABS: HIV 1 & 2 Ab/Ag 4th Gen Combo NEGATIVE (NEGATIVE)
== END ==
PROVIDERS: PCP Nurse Practitioner; Referring Provider Nurse Practitioner; Visit Provider Nurse Practitioner
DX: Z11.4 Encounter for screening for human immunodeficiency virus [HIV] (principal); R73.03 Prediabetes; K86.1 Other chronic pancreatitis; E78.2 Mixed hyperlipidemia; K76.0 Fatty (change of) liver, not elsewhere classified; G47.00 Insomnia, unspecified; Z79.899 Other long term (current) drug therapy
CPT/HCPCS: 36415; 80053; 80061; 83036; 84439; 84443; 84481; 87389

== ENCOUNTER → 2024-03-13 10:11 | Outpatient (CLI) | payer MEDICARE, OTHER, SELFPAY ==
[2024-03-13 11:36] LABS: Creatinine Urine Random 113.57 mg/dL
[2024-03-13 11:41] LABS: Microalbumin Urine Random 1.2 mg/dL (0-1.6)
== END ==
PROVIDERS: PCP Nurse Practitioner; Referring Provider Nurse Practitioner; Visit Provider Nurse Practitioner
DX: R73.03 Prediabetes (principal); K86.1 Other chronic pancreatitis; E78.2 Mixed hyperlipidemia; K76.0 Fatty (change of) liver, not elsewhere classified; G47.00 Insomnia, unspecified; Z79.899 Other long term (current) drug therapy
CPT/HCPCS: 82043; 82570

== ENCOUNTER → 2025-01-28 10:28 | Outpatient (CLI) | payer MEDICARE, OTHER, SELFPAY | LOC: LAB 10:28 | PROVIDERS: PCP Nurse Practitioner; Visit Provider Physician Assistant | DX: R30.0 Dysuria (principal) | CPT/HCPCS: 87086 ==

== ENCOUNTER → 2025-01-28 10:56 | Outpatient (CLI) | payer MEDICARE, OTHER, SELFPAY ==
--- NOTE | 2025-01-28 10:57 | DI.RAD.S_ITS ---
PROCEDURE: XR CHEST 2V INDICATIONS: cough x 1 mo TECHNIQUE: 2 views of the chest were acquired. COMPARISON: None. FINDINGS: Surgical changes and devices: None. Lungs and pleura: Lungs are clear. No pleural effusions or pneumothorax. Mediastinum: Mediastinal contours are normal. Heart size is normal. Bones and chest wall: No suspicious bony abnormalities. Soft tissues appear unremarkable. IMPRESSION: No acute cardiopulmonary abnormality is seen. Dictated by: Liam Phipps M.D. on 01/29/2025 at 2:17 Approved by: Liam Phipps M.D. on 01/29/2025 at 2:17
== END ==
PROVIDERS: PCP Nurse Practitioner; Referring Provider Physician Assistant; Visit Provider Physician Assistant
DX: J06.9 Acute upper respiratory infection, unspecified (principal)
CPT/HCPCS: 71046; 87086

== ENCOUNTER → 2025-02-06 10:51 | Outpatient (CLI) | payer MEDICARE, OTHER, SELFPAY ==
[2025-02-06 11:20] LABS: Hematocrit 42.2 % (36-46); Hemoglobin 14.1 g/dL (12.0-16.0); Mean Corpuscular HGB Conc 33.4 % (30-36); Mean Corpuscular Hemoglobin 30.9 PG (26-34); Mean Corpuscular Volume 92.6 fL (80-100); Platelet Count 282 X10^3/uL (150-400); Red Blood Cell Count 4.56 X10^6/uL (4.0-5.2); Red Cell Distribution Width 13.3 % (11.6-14.8); White Blood Cell Count 9.3 X10^3/uL (4.5-11.0)
[2025-02-06 12:12] LABS: Alanine Aminotransferase 77 IU/L (<35); Albumin 4.4 g/dL (3.5-5.0); Albumin Globulin Ratio 1.6 (1.0-2.8); Alkaline Phosphatase 134 U/L (38-126); Aspartate Aminotransferase 51 IU/L (14-36); BUN Creatinine Ratio 24.7 (6-22); Bilirubin Total 0.6 mg/dL (0.2-1.3); Blood Urea Nitrogen 18 mg/dL (7-17); Calcium 9.3 mg/dL (8.4-10.2); Carbon Dioxide 26 mmol/L (22-32); Chloride 103 mmol/L (98-107); Cholesterol 179 mg/dL (140-199); Estimated Glomerular Filt Rate > 60 mL/min (>60); Globulin 2.7 g/dL (1.7-4.1); Glucose 101 mg/dL (70-99); HDL Cholesterol 57 mg/dL (40-60); HEMOLYSIS < 15 (0-50); LDL Cholesterol Calculated 74 mg/dL (<100); Potassium 4.7 mmol/L (3.4-5.1); Sodium 138 mmol/L (137-145); Total Protein 7.1 g/dL (6.3-8.2); Triglycerides 240 mg/dL (35-150)
[2025-02-06 14:14] LABS: Hemoglobin A1C% w Est Avg Glu 5.4 % (4.0-6.0)
== END ==
PROVIDERS: PCP Family Medicine; Referring Provider Family Medicine; Visit Provider Family Medicine
DX: R06.09 Other forms of dyspnea (principal); E04.1 Nontoxic single thyroid nodule; D49.0 Neoplasm of unspecified behavior of digestive system; G47.33 Obstructive sleep apnea (adult) (pediatric)
CPT/HCPCS: 36415; 80053; 80061; 83036; 85027

== ENCOUNTER → 2025-02-13 12:42 | Outpatient (CLI) | payer MEDICARE, OTHER, SELFPAY ==
--- NOTE | 2025-02-13 12:44 | DI.MG.S_ITS ---
MM screening mammo BI: 02/13/2025. BI-RADS: 2 CLINICAL: 64-year old female for bilateral screening mammogram. Tyrer-Cuzick lifetime risk of 7.5%. No personal or first-degree family history of breast cancer. The patient had prior bilateral breast biopsies. PRIOR EXAMS 02/13/2024, 01/17/2023, 03/07/2022, 01/13/2022, 11/26/2020, 06/23/2020, 12/10/2019, 11/11/2019. MAMMOGRAPHY TECHNIQUE: 2D and 3D (tomosynthesis) digital mammographic views obtained, with additional images as needed for full coverage. Current study was also evaluated with a Computer Aided Detection (CAD) system. DENSITY C. The breasts are heterogeneously dense, which may obscure small masses. MAMMOGRAPHY FINDINGS Right: Biopsy markers present on the right. Benign-appearing asymmetry noted on the right. There are no suspicious masses, calcifications, or other findings in the breast. No significant change from comparison. Left: Biopsy marker present on the left. Benign-appearing asymmetry noted on the left. There are no suspicious masses, calcifications, or other findings in the breast. No significant change from comparison. IMPRESSION: * No evidence of malignancy with benign findings. RECOMMENDATIONS Bilateral * Annual screening mammography. OVERALL ASSESSMENT CATEGORY BI-RADS-2: Benign. [employer] recommends annual screening mammography beginning at age 40 for women with average risk of breast cancer. ELECTRONICALLY SIGNED: Itzel Ivy M.D. on 02/14/2025 at 11:50:51 AM PT Interpreting Station ID: [id number]
== END ==
PROVIDERS: PCP Family Medicine; Referring Provider Family Medicine; Visit Provider Family Medicine
DX: Z12.31 Encounter for screening mammogram for malignant neoplasm of breast (principal); R92.333 Mammographic heterogeneous density, bilateral breasts
CPT/HCPCS: 77063; 77067